=== PATIENT | male | born 1965 | race Caucasian/White ===

== ENCOUNTER 2017-01-27 12:26 | Emergency (ER) | payer OTHER ==
[~2017-01-27] VITALS: Ht 185.4 cm; Wt 118.2 kg
[2017-01-27] MEDS ORDERED: LOSARTAN/HCT (12:36)
[2017-01-27] MEDS ORDERED: KETO30IN5 IM (12:36)
[2017-01-27] MEDS ORDERED: OMEP20CA3 (12:36)
[2017-01-27] MEDS ORDERED: PERCOCET 5MG/325MG TAB PO ONE (13:15)
[2017-01-27] MEDS ORDERED: TAMSULOSIN 0.4 MG CAP PO ONE (13:15)
[2017-01-27] MEDS ORDERED: NAPR500T PO (13:35)
[2017-01-27] MEDS ORDERED: OXYC1TAB23 PO (13:35)
[2017-01-27] MEDS ORDERED: FLOM5CAP PO (13:35)
[2017-01-27 13:46] VITALS: BP 141/72
== END 2017-01-27 13:54 | disposition home or self-care (01) ==
LOC: M ED 12:26
DX: N20.1 Calculus of ureter (principal); M54.5 Low back pain; I10 Essential (primary) hypertension; Z79.899 Other long term (current) drug therapy

== ENCOUNTER → 2017-01-27 | Outpatient (CLI) | payer OTHER ==
[~2017-01-27] MED LIST: FLOM5CAP PO; KETO30IN5 IM; LOSARTAN/HCT; NAPR500T PO; OMEP20CA3; OXYC1TAB23 PO
--- NOTE | 2017-01-27 12:42 | REP ---
CT ABDOMEN AND PELVIS WITHOUT CONTRAST: CT abdomen and pelvis performed without oral or IV contrast, with sagittal and coronal reconstruction images performed. Visualized lung bases show a calcified granuloma in the right. Liver, gallbladder, spleen, adrenals, and pancreas are grossly unremarkable. There is a tiny dylon like calcification in the left lower pole collecting system of the left kidney. There is mild right hydroureteronephrosis caused by a 3 mm stone at the right ureterovesical junction. There is no abdominal aortic aneurysm. There is no adenopathy. There is no free air or free fluid. No bowel wall thickening is seen. There is no evidence of appendicitis. There is mild sigmoid diverticulosis. Metallic clips are seen in the left lower quadrant. There appear to be small bilateral inguinal hernias containing fat. IMPRESSION: There is a 3 mm calculus of the right ureterovesical junction causing mild hydroureteronephrosis. No other acute finding. Signed by Dany Cameron MD 01/30/2017 09:49 A
== END ==
LOC: M RAD 11:45
PROVIDERS: ATTEND Physician Assistant
DX: N20.1 Calculus of ureter (principal)

== ENCOUNTER → 2017-01-27 | Outpatient (CLI) | payer OTHER ==
--- NOTE | 2017-01-27 10:37 | REP ---
LUMBAR SPINE, FIVE VIEWS: HISTORY: Back pain. There is no acute fracture. The intervertebral discs are decreased in height consistent with disc degeneration. There is narrowing of the L4-5 and L5-S1 fact joints. There are 3 mm of retrolisthesis of L5 on S1. IMPRESSION: Degenerative change as described above. Signed by Jason Paul MD 01/27/2017 10:40 A
--- NOTE | 2017-01-27 10:40 | REP ---
ABDOMEN, TWO VIEWS: HISTORY: Pain. A small amount of air is present in small and large intestine. There are no air fluid levels or dilated loops of intestine. There is no pneumoperitoneum. IMPRESSION: Nonspecific bowel gas pattern. Signed by Jason Paul MD 01/27/2017 10:43 A
[2017-01-27 11:49] LABS: BASO % 0.5 % (0.0-1.0); EOS # 0.1 10^3/uL (0.0-0.50); EOS % 1.7 % (0.0-3.0); IMMATURE GRANULOCYTE % 0.4 % (0-0); LYMPH # 1.4 10^3/uL (1.5-4.5); LYMPH % 17.5 % (24.0-44.0); MEAN CORPUSCULAR HEMOGLOBIN 31.1 pg (27.0-33.0); MEAN CORPUSCULAR VOLUME 91.5 fl (80.0-96.0); MONO # 0.5 10^3/uL (0.0-0.8); MONO % 6.3 % (0.0-5.0); NEUTROPHILS % 73.6 % (36.0-66.0); PLATELET COUNT, AUTOMATED 302 10^3/uL (150-450); RED CELL DISTRIBUTION WIDTH 12.8 % (11.5-14.5); WHITE BLOOD COUNT 8.1 10^3/uL (4.0-10.0)
[2017-01-27 12:48] LABS: BACTERIA, URINE SMALL AMOUNT; HYALINE CAST, URINE NONE SEEN /lpf (0-1); MICROSCOPIC EXAM PERFORMED; RBC, URINE NONE SEEN /hpf (0-3); SQUAMOUS EPITHELIAL CELL URINE NONE SEEN /hpf (SMALL AMT)
[2017-01-27 14:16] LABS: ALBUMIN 4.3 GM/DL (3.2-5.2); ALBUMIN/GLOBULIN RATIO 1.26 (1.00-1.93); ALKALINE PHOSPHATASE 104 U/L (45-117); ALT/SGPT 45 U/L (12-78); ANION GAP 10 MEQ/L (8-16); AST/SGOT 24 U/L (15-37); BILIRUBIN,TOTAL 0.9 MG/DL (0.2-1.0); BLOOD UREA NITROGEN 14 MG/DL (7-18); CALCIUM LEVEL 9.6 MG/DL (8.5-10.1); CARBON DIOXIDE LEVEL 26 MEQ/L (21-32); CHLORIDE LEVEL 103 MEQ/L (98-107); GLOMERULAR FILTRATION RATE > 60.0 (>56); GLUCOSE, FASTING 104 MG/DL (70-105); POTASSIUM SERUM 4.6 MEQ/L (3.5-5.1); SODIUM LEVEL 139 MEQ/L (136-145); TOTAL PROTEIN 7.7 GM/DL (6.4-8.2)
== END ==
LOC: M WUC 09:49
PROVIDERS: ATTEND Physician Assistant
DX: M54.5 Low back pain (principal)

== ENCOUNTER → 2020-05-27 | Outpatient (REF) | payer OTHER ==
[~2020-05-27] MED LIST changes: +FLOM0.4C39 PO; -FLOM5CAP PO; +NAPR-837 PO; -NAPR500T PO; +OMEP1CAP73; -OMEP20CA3
[2020-05-31 06:36] LABS: PSA TOTAL 1.8 ng/mL (0.0-4.0)
== END ==
LOC: M PLALAB 15:10
PROVIDERS: ATTEND Urology
DX: R97.20 Elevated prostate specific antigen [PSA] (principal)
CPT/HCPCS: 36415; 84154; G0463

== ENCOUNTER → 2020-11-20 | Outpatient (CLI) | payer OTHER | LOC: M LABSMTC 10:08 | PROVIDERS: ATTEND Surgery | DX: Z01.812 Encounter for preprocedural laboratory examination (principal); Z20.822 Contact with and (suspected) exposure to COVID-19 ==

== ENCOUNTER 2020-11-25 07:27 | Day surgery (SDC) | payer OTHER ==
[~2020-11-25] VITALS: Ht 182.9 cm; Wt 101.1 kg
[~2020-11-25 07:27] MED LIST changes: +NS 1,000 ML IV ONE
[2020-11-25] MEDS ORDERED: propofoL 200 MG/20 ML VIAL As Ordered ONE ×2 (08:36→08:52)
[2020-11-25] MEDS ORDERED: LIDOCAINE 2% 100MG/5ML SDV (FOR ANES.) As Ordered ONE (08:36)
--- NOTE | 2020-11-25 09:11 | ROOR ---
Patient Name: Darvin Martinez Procedure Date: 11/25/2020 8:42 AM Date of : 1965 Age: 54 Room: [facility] Gender: Male Note Status: Finalized Procedure: Colonoscopy Indications: High risk colon cancer surveillance: Personal history of colonic polyps Providers: DO Marisol Toledo MD: Tim Camacho MD Requesting Provider: Medicines: Propofol per Anesthesia Complications: No immediate complications. Procedure: Pre-Anesthesia Assessment: - Prior to the procedure, a History and Physical was performed, and patient medications and allergies were reviewed. The patient is competent. The risks and benefits of the procedure and the sedation options and risks were discussed with the patient. All questions were answered and informed consent was obtained. Patient identification and proposed procedure were verified by the physician, the nurse, the anesthesiologist and the residential pest control technician in the endoscopy suite. Mental Status Examination: alert and oriented. Airway Examination: normal oropharyngeal airway and neck mobility. Respiratory Examination: clear to auscultation. CV Examination: normal. Prophylactic Antibiotics: The patient does not require prophylactic antibiotics. Prior Anticoagulants: The patient has taken no previous anticoagulant or antiplatelet agents. ASA Grade Assessment: II - A patient with mild systemic disease. After reviewing the risks and benefits, the patient was deemed in satisfactory condition to undergo the procedure. The anesthesia plan was to use monitored anesthesia care (MAC). Immediately prior to administration of medications, the patient was re-assessed for adequacy to receive sedatives. The heart rate, respiratory rate, oxygen saturations, blood pressure, adequacy of pulmonary ventilation, and response to care were monitored throughout the procedure. The physical status of the patient was re-assessed after the procedure. The Colonoscope was introduced through the anus and advanced to the cecum, identified by appendiceal orifice and ileocecal valve. The colonoscopy was performed without difficulty. The patient tolerated the procedure well. Findings: A few small-mouthed diverticula were found in the sigmoid colon. Non-bleeding internal hemorrhoids were found during retroflexion. The hemorrhoids were mild and Grade I (internal hemorrhoids that do not prolapse). A scattered area of mildly hemorrhagic mucosa was found in the sigmoid colon. Biopsies were taken with a cold forceps for histology. Impression: - Diverticulosis in the sigmoid colon. - Non-bleeding internal hemorrhoids. - Hemorrhagic mucosa in the sigmoid colon. Biopsied. Recommendation: - Patient has a contact number available for emergencies. The signs and symptoms of potential delayed complications were discussed with the patient. Return to normal activities tomorrow. Written discharge instructions were provided to the patient. - Await pathology results. - Repeat colonoscopy in 5-10 years for surveillance based on pathology results. - Return to physician civil engineering assistant at appointment to be scheduled. Procedure Code(s): --- Professional --- 16715, Colonoscopy, flexible; with biopsy, single or multiple Diagnosis Code(s): --- Professional --- Z86.010, Personal history of colonic polyps K64.0, First degree hemorrhoids K92.2, Gastrointestinal hemorrhage, unspecified K57.30, Diverticulosis of large intestine without perforation or abscess without bleeding CPT copyright 2019 [employer]. All rights reserved. The codes documented in this report are preliminary and upon horse exerciser review may be revised to meet current compliance requirements. Dany Hernandez DO 11/25/2020 9:11:21 AM Electronically signed by Dany Hernandez DO Number of Addenda: 0 Note Initiated On: 11/25/2020 8:42 AM Estimated Blood Loss: Estimated blood loss was minimal.
[2020-11-25 09:30] VITALS: BP 117/81
== END 2020-11-25 09:39 | disposition home or self-care (01) ==
LOC: M OPP 07:27
PROVIDERS: ATTEND Surgery
DX: Z86.010 Personal history of colon polyps (principal); D12.5 Benign neoplasm of sigmoid colon; K64.0 First degree hemorrhoids; K92.2 Gastrointestinal hemorrhage, unspecified; K57.30 Diverticulosis of large intestine without perforation or abscess without bleeding; I10 Essential (primary) hypertension; K21.9 Gastro-esophageal reflux disease without esophagitis; H91.90 Unspecified hearing loss, unspecified ear; E78.5 Hyperlipidemia, unspecified; Z79.899 Other long term (current) drug therapy

== ENCOUNTER → 2024-11-11 | Outpatient (CLI) | payer OTHER ==
[~2024-11-11] MED LIST changes: -FLOM0.4C39 PO; -NS 1,000 ML IV ONE; +TAMS-18 PO
[2024-11-11 11:37] LABS: BASO # 0.0 10^3/uL (0.0-0.2); BASO % 0.6 % (0.0-1.0); EOS # 0.4 10^3/uL (0.0-0.5); EOS % 5.1 % (0.0-3.0); LYMPH # 2.1 10^3/uL (1.5-5.0); LYMPH % 31.0 % (24.0-44.0); MONO # 0.7 10^3/uL (0.0-0.8); MONO % 9.4 % (2.0-8.0); NEUTROPHILS # 3.7 10^3/uL (1.5-8.5); NEUTROPHILS % 53.8 % (36.0-66.0); PLATELET COUNT, AUTOMATED 247 10^3/uL (150-450)
[2024-11-11 12:01] LABS: ALT/SGPT 25 U/L (7.0-40); AST/SGOT 27 U/L (<34); CALCIUM LEVEL 9.4 MG/DL (8.5-10.1); CARBON DIOXIDE LEVEL 28 MMOL/L (20-31); CHLORIDE LEVEL 104 MMOL/L (98-107); CHOLESTEROL LEVEL 131 MG/DL (<200); CHOLESTEROL RISK RATIO 2.31 (<5); CREATININE FOR GFR 0.82 MG/DL (0.70-1.30); GLOMERULAR FILTRATION RATE > 90.0 (>56); LDL CHOLESTEROL 56.5 MG/DL (<100); NON-HDL-C 74.3 MG/DL; POTASSIUM SERUM 4.5 MMOL/L (3.5-5.1); SODIUM LEVEL 140 MMOL/L (136-145); TRIGLYCERIDES LEVEL 89 MG/DL (<150)
[2024-11-11 12:03] LABS: TOTAL 25(OH) VITAMIN D 55.1 NG/ML (20.0-100.0)
== END ==
LOC: M LAB 10:38
PROVIDERS: ATTEND Nurse Practitioner Family
DX: I10 Essential (primary) hypertension (principal); E78.2 Mixed hyperlipidemia; E55.9 Vitamin D deficiency, unspecified

== ENCOUNTER → 2024-12-04 | Outpatient (CLI) | payer OTHER | LOC: M SLEEP 20:00 | PROVIDERS: ATTEND Internal Medicine | DX: G47.33 Obstructive sleep apnea (adult) (pediatric) (principal) ==

== ENCOUNTER → 2024-12-26 | Outpatient (CLI) | payer OTHER | LOC: M PLAIMG 07:50 | PROVIDERS: ATTEND Nurse Practitioner Family | DX: M25.562 Pain in left knee (principal) ==